=== PATIENT | male | born 1945 | race Asian ===

== ENCOUNTER 2019-11-18 07:23 | Day surgery (SDC) | payer OTHER ==
[~2019-11-18] VITALS: Ht 160 cm; Wt 54.4 kg
--- NOTE | 2019-11-18 07:23 | NUR ---
Patient BIBA BLS, transferred to bed 5. RN evaluating patient at bedside.
[2019-11-18 07:29] VITALS: BP 163/83
--- NOTE | 2019-11-18 07:36 | NUR ---
PT C/O DIZZINESS X THIS AM UPON AWAKENING. PT STATES HE INSTANTLY SAT DOWN WHEN HE FELT DIZZINESS, DENIES FALLING. PT IS SCHEDULED FOR COLONOSCOPY HERE AT 9AM TODAY SO HAS BEEN CLEARING BOWELS AND NPO. PT REPORTS LAST EATING 2 DAYS AGO. DENIES SOB, CP. PER EMS, FSBS 60, ORTHOSTATIC BP +, AND 12 LEAD EKG NEGATIVE. BS NOW 71. PT AMBULATES FROM STRETCHER TO BED WITH STEADY GAIT. PT HR 103. PT ALERT AND AWAKE. NEURO INTACT-EQUAL ARM CREDIT SPECIALIST, PUPILS PERRL, MEMORY INTACT, SPEECH CLEAR. HX- HTN
[2019-11-18] MEDS ORDERED: DEXTROSE 50% 50 ML SYR IVP ONE (07:45)
[2019-11-18] MEDS ORDERED: NACL 0.9% 1,000 ML IV ONE (07:45)
--- NOTE | 2019-11-18 08:05 | NUR ---
IV INSERTED, BOLUS STARTED, DEXTROSE IVP ADMINISTERED
--- NOTE | 2019-11-18 08:13 | NUR ---
LAB AT BEDSIDE
--- NOTE | 2019-11-18 08:16 | NUR ---
CALLED SURGERY AND UPDATED THEM WITH PT STATUS, SURGERY STATES CALL WHEN PT IS FINISHED AND THEY WILL FIND A BED
[2019-11-18 08:39] LABS: CARBON DIOXIDE 24.9 mmol/L (21-32); CHLORIDE 99 mmol/L (98-107); CREATININE 1.2 mg/dL (0.7-1.3); GLUCOSE 196 mg/dL (74-106); POTASSIUM 3.9 mmol/L (3.5-5.1); SODIUM SERUM 133 mmol/L (136-145); UREA NITROGEN, BLOOD 18 mg/dL (7-18)
[2019-11-18 08:43] LABS: BASOPHILS % (AUTO) 0.5 % (0.0-2.0); EOSINOPHILS # (AUTO) 0.1 K/uL (0-0.4); EOSINOPHILS % (AUTO) 0.8 % (0.0-4.0); HEMATOCRIT 41.8 % (36-52); HEMOGLOBIN 13.6 g/dL (12.0-18.0); LYMPHOCYTES # (AUTO) 1.7 K/uL (2.0-11.5); LYMPHOCYTES % (AUTO) 22.5 % (20.5-51.1); MEAN CORPUSCULAR HEMOGLOBIN 29 pg (27-31); MEAN CORPUSCULAR HGB CONC 33 g/dL (33-37); MEAN CORPUSCULAR VOLUME 89.8 fL (80-94); MONOCYTES # (AUTO) 0.5 K/uL (0.8-1.0); MONOCYTES % (AUTO) 6.6 % (1.7-9.3); NEUTROPHILS # (AUTO) 5.4 K/uL (1.8-7.7); NEUTROPHILS % (AUTO) 69.6 % (42.2-75.2); PLATELET COUNT (AUTO) 254 K/uL (140-450); RED BLOOD CELL COUNT(AUTO) 4.65 MIL/uL (4.20-6.10); RED CELL DISTRIBUTION WIDTH 13.4 % (11.6-13.7); WHITE BLOOD COUNT (AUTO) 7.7 K/uL (4.8-10.8)
[2019-11-18 08:45] LABS: ALBUMIN 3.5 g/dL (3.4-5.0); ASPARTATE AMINOTRANSFERASE 31 U/L (15-37); TOTAL BILIRUBIN 1.1 mg/dL (0.0-1.0)
--- NOTE | 2019-11-18 08:57 | NUR ---
DR KING AT BEDSIDE
--- NOTE | 2019-11-18 09:05 | NUR ---
CALLED [facility] [place], STATES THEY DONT HAVE A BED AT THIS TIME. NO ESTIMATED TIME OF BED AVAILABILITY.
--- NOTE | 2019-11-18 09:07 | NUR ---
PER CORRINA DIRECTOR, PT CAN REMAIN WITH IV IF HE IS TRANSFERED TO THE SURGERY CENTER THROUGH MAIN HALLWAYS
--- NOTE | 2019-11-18 09:08 | NUR ---
NADR, BOLUS FINISHED, PAIN 0/10
--- NOTE | 2019-11-18 09:18 | NUR ---
ACCU CHECK [id number]
--- NOTE | 2019-11-18 09:40 | NUR ---
PT PENDING DISCHARGE TO SURGERY FOR SCHEDULED COLONOSCOPY, WAITING FOR BED AVAILABILITY
[2019-11-18 09:56] VITALS: BP 150/87
--- NOTE | 2019-11-18 09:56 | NUR ---
Patient discharged with v/s stable. Written and verbal after care instructions given and explained REGARDING DEHYDRATION. Patient verbalized understanding. PT WHEELCHAIRED TO [facility] [place] FOR SCHEDULED COLONOSCOPY IV REMAINED INTACT
[2019-11-18] MEDS ORDERED: fentaNYL 0.05 MG/ML VIAL ONE (11:58)
[2019-11-18] MEDS ORDERED: LIDOCAINE 2% 100 MG/5 ML UJET TP ONE (11:58)
[2019-11-18] MEDS ORDERED: MIDAZOLAM 2 MG/2 ML VIAL ONE (11:58)
[2019-11-18] MEDS ORDERED: MIDAZOLAM 2 MG/2 ML VIAL IVP ONE (12:20)
[2019-11-18] MEDS ORDERED: fentaNYL 0.05 MG/ML VIAL IVP ONE (12:20)
== END 2019-11-18 13:00 | disposition home or self-care (01) ==
LOC: MED 07:23 → MMU 09:50 → MDS 09:50 → MED 09:56 → MDS 11:30
PROVIDERS: ATTEND Internal Medicine Gastroenterology
DX: Z12.11 Encounter for screening for malignant neoplasm of colon (principal); K64.8 Other hemorrhoids; I10 Essential (primary) hypertension; Z79.82 Long term (current) use of aspirin; Z79.899 Other long term (current) drug therapy
CPT/HCPCS: 36415; 45378; 80053; 85025; J2250; J3010